=== PATIENT | male | born 1945 | race Caucasian/White ===

== ENCOUNTER 2018-01-22 12:40 | Day surgery (SDC) | payer MEDICARE ==
[~2018-01-22] VITALS: Ht 188 cm; Wt 95.9 kg
[~2018-01-22 12:40] MED LIST: ALBU90OI INH; ASPI81EC PO; FEXO180 PO; FLUSAL2505 IH; FURO40 PO; Isosorbide Mono30 MG PO; LEVSOD100 PO; LISI5 PO; METO25 PO; POTA10T PO; SERT50 PO; SIMV10 PO; SPIR25 PO; XARELTO20 MG PO; ZOLP10 PO
== END 2018-01-22 15:33 | disposition home or self-care (01) ==
LOC: ORSCSDS 12:40
PROVIDERS: Ophthalmology
PROC: 08RJ3JZ Replacement of Right Lens with Synthetic Substitute, Percutaneous Approach (ICD-10-PCS; principal; 2018-01-22 14:00)
DX: H25.11 Age-related nuclear cataract, right eye (principal); I25.10 Atherosclerotic heart disease of native coronary artery without angina pectoris; J44.9 Chronic obstructive pulmonary disease, unspecified; I25.2 Old myocardial infarction; I10 Essential (primary) hypertension; E03.9 Hypothyroidism, unspecified; Z95.0 Presence of cardiac pacemaker; Z79.899 Other long term (current) drug therapy
CPT/HCPCS: J2250; J3010; J7120; V2632

== ENCOUNTER 2019-10-07 13:17 | Inpatient (IN) | payer MEDICARE ==
[~2019-10-07] VITALS: Ht 188 cm; Wt 103.9 kg
[2019-10-07] MEDS ORDERED: ALBU90OI INH (15:26)
[2019-10-07] MEDS ORDERED: ANORO ELLIPTA1 EACH INH (15:28)
[2019-10-07] MEDS ORDERED: ZOCOR20 MG PO (15:43)
[2019-10-07] MEDS ORDERED: EUTHYROX125 MCG PO (15:43)
[2019-10-07] MEDS ORDERED: Prinivil10 MG PO (15:44)
[2019-10-07] MEDS ORDERED: METO50 PO (15:44)
--- NOTE | 2019-10-07 18:10 | NUR ---
pt transferred to room via stretcher, a/o x 4, pleasant/cooperative, VSS. Dr Hudson and Luis Villegas consulting with pt, echocardiogram in room underway. pt provided with water and snack. bed in lowest position, bed rails up x 2, call light within reach and pt oriented to room.
--- NOTE | 2019-10-07 18:51 | NUR ---
echocardiogram complete
[2019-10-07 19:27] LABS: BASOPHILS ABSOLUTE AUTO 0.02 K/mm3 (0.00-0.23); BASOPHILS PERCENT AUTO 0 % (0-2); EOSINOPHILS ABSOLUTE AUTO 0.01 K/mm3 (0.00-0.68); EOSINOPHILS PERCENT AUTO 0 % (0-6); Hematocrit 41.7 % (37.0-53.0); Hemoglobin 13.5 g/dL (13.5-17.5); IMMATURE GRAN ABSOLUTE AUTO 0.05 K/mm3 (0.00-0.10); IMMATURE GRAN PERCENT AUTO 0 % (0-1); LYMPHOCYTES ABSOLUTE AUTO 0.79 K/mm3 (0.84-5.20); LYMPHOCYTES PERCENT AUTO 7 % (21-46); MONOCYTES ABSOLUTE AUTO 0.41 K/mm3 (0.16-1.47); MONOCYTES PERCENT AUTO 4 % (4-13); Mean Corpuscular HGB Conc 32.4 g/dL (31.5-36.5); Mean Corpuscular Volume 96 fL (80-100); Mean Platelet Volume 9.5 fL (9.1-12.4); NEUTROPHILS ABSOLUTE AUTO 10.38 K/mm3 (1.96-9.15); NEUTROPHILS PERCENT AUTO 89 % (41-73); Platelet Count 221 K/mm3 (150-400); RDW Coefficient Variation 12.3 % (11.7-14.2); RDW Standard Deviation 43.8 fL (35.1-46.3); Red Blood Cell Count 4.35 M/mm3 (4.30-5.90); White Blood Cell Count 11.66 K/mm3 (4.00-11.30)
[2019-10-07 19:46] LABS: Alanine Aminotransfer (ALT/SGP 20 U/L (12-78); Albumin, Blood 4.2 g/dL (3.4-5.0); Albumin/Globulin Ratio 1.2 (0.8-1.8); Alk Phos 66 U/L (50-136); Anion Gap 6 mmol/L (6-16); Aspartate Aminotrans (AST/SGOT 15 U/L (12-37); Bilirubin, Total 0.8 mg/dL (0.1-1.0); Blood Urea Nitrogen 18 mg/dL (8-24); Bun/Creatinine Ratio 20.5 (12.0-20.0); CO2, Blood 27 mmol/L (21-32); Calcium, Blood 9.1 mg/dL (8.5-10.1); Chloride, Blood 103 mmol/L (98-108); Creatinine, Blood 0.88 mg/dL (0.60-1.20); Globulin, Blood 3.5 g/dL (2.2-4.0); Glomerular Filtration Rate >60 (60-); Glucose, Blood 182 mg/dL (70-99); Potassium, Blood 4.2 mmol/L (3.5-5.5); Sodium, Blood 136 mmol/L (136-145); Total Protein, Blood 7.7 g/dL (6.4-8.2)
--- NOTE | 2019-10-08 00:50 | NUR ---
RECIEVED ORDERS TO START NS AT 100ML/HR RELATED TO NPO STATUS FOR SURGERY TOMORROW.
[2019-10-08 05:13] LABS: BASOPHILS ABSOLUTE AUTO 0.02 K/mm3 (0.00-0.23); BASOPHILS PERCENT AUTO 0 % (0-2); EOSINOPHILS ABSOLUTE AUTO 0.07 K/mm3 (0.00-0.68); EOSINOPHILS PERCENT AUTO 1 % (0-6); Hemoglobin 12.8 g/dL (13.5-17.5); IMMATURE GRAN ABSOLUTE AUTO 0.04 K/mm3 (0.00-0.10); IMMATURE GRAN PERCENT AUTO 0 % (0-1); LYMPHOCYTES ABSOLUTE AUTO 1.38 K/mm3 (0.84-5.20); LYMPHOCYTES PERCENT AUTO 14 % (21-46); MONOCYTES ABSOLUTE AUTO 0.77 K/mm3 (0.16-1.47); MONOCYTES PERCENT AUTO 8 % (4-13); Mean Corpuscular HGB 31.1 pg (26.0-34.0); Mean Corpuscular Volume 97 fL (80-100); Mean Platelet Volume 9.6 fL (9.1-12.4); NEUTROPHILS ABSOLUTE AUTO 7.94 K/mm3 (1.96-9.15); NEUTROPHILS PERCENT AUTO 78 % (41-73); Platelet Count 192 K/mm3 (150-400); RDW Coefficient Variation 12.4 % (11.7-14.2); RDW Standard Deviation 44.5 fL (35.1-46.3); Red Blood Cell Count 4.12 M/mm3 (4.30-5.90); White Blood Cell Count 10.22 K/mm3 (4.00-11.30)
[2019-10-08 05:35] LABS: Alanine Aminotransfer (ALT/SGP 17 U/L (12-78); Albumin, Blood 3.8 g/dL (3.4-5.0); Albumin/Globulin Ratio 1.1 (0.8-1.8); Alk Phos 60 U/L (50-136); Anion Gap 4 mmol/L (6-16); Aspartate Aminotrans (AST/SGOT 13 U/L (12-37); Bilirubin, Total 0.8 mg/dL (0.1-1.0); Blood Urea Nitrogen 21 mg/dL (8-24); Bun/Creatinine Ratio 25.5 (12.0-20.0); CO2, Blood 29 mmol/L (21-32); Calcium, Blood 8.6 mg/dL (8.5-10.1); Chloride, Blood 103 mmol/L (98-108); Creatinine, Blood 0.83 mg/dL (0.60-1.20); Globulin, Blood 3.5 g/dL (2.2-4.0); Glomerular Filtration Rate >60 (60-); Glucose, Blood 140 mg/dL (70-99); Sodium, Blood 136 mmol/L (136-145); Total Protein, Blood 7.3 g/dL (6.4-8.2)
--- NOTE | 2019-10-08 05:57 | NUR ---
SHIFT SUMMARY AA0X4, VSS. PT HAS BEEN REPOSITIONING FREQUENTLY IN BED. NPO SINCE 0000 IN PREPARATION FOR SURGERY. WILL PASS ON TO DAY NURSE TO HOLD MORNING XARELTO FOR SURGERY. SENSATION PRESENT IN L HIP, CAP REFILL <3 WIGGLES FINGERS AND TOES. IV FLUIDS INFUSING DURING SHIFT. PT HAS YET TO VOID, BLADDER SCAN OF 243 BEFORE IV FLUIDS STARTED. PT DECLINED BLADDER SCAN AND REQUESTED THIS NURSE ATTEMPT AGAIN AT SHIFT CHANGE. EDUCATED PT ON NEED FOR POSSIBLE STRAIGHT CATH IF UNABLE TO VOID.
--- NOTE | 2019-10-08 10:00 | NUR ---
DR EDWARDS HERE TO SEE PT.
--- NOTE | 2019-10-08 11:59 | NUR ---
PT BEEN GIVEN WATER RECENTLY IT WAS REPORTED THAT PT WAS NOT HAVING PROCEDURE TODAY. PT EDUCATED ON NEW ORDERS OF BEING ABLE TO EAT/DRINK NOW AND NPO AFTER MIDNIGHT.
--- NOTE | 2019-10-08 16:09 | NUR ---
SHIFT SUMMARY PT EATING AND DRINKING AFTER IT WAS REPORTED THAT HE WAS NOT HAVING A PROCEDURE TODAY. PT VOIDED SMALL AMT, DOES NOT FEEL IF HE NEEDS TO VOID ANYMORE. PT BLADDER SCANNED, 327 IN BLADDER. PT REPORTS DOES NOT WANT A CATHETER THAT HE WILL ATTEMPT TO GO AGAIN AFTER A WHILE. PT BEEN REPOSITIONED. PT BEEN ASSISTED WITH ADL'S PRN. PT BEEN MED FOR PAIN PRN.
--- NOTE | 2019-10-09 04:34 | NUR ---
SHIFT SUMMARY PT IS A/O X4. HAS BEEN BEDREST D/T L HIP FX. PAIN MANAGED WITH PO PAIN MED AND IV DILAUDED FOR BREAKTHROUGH; SEE EMAR. PT REPOSITIONED SEVERAL TIMES THROUGHOUT THE NIGHT. PT HAS BEEN NPO SINCE MIDNIGHT PER ORDER. PT IS VOIDING, USES URINAL. PER TELE PT HAS BEEN IN AFIB DURING THE NIGHT; PT HAS HX A FIB. NO ACUTE CHANGES. VSS.
--- NOTE | 2019-10-09 15:27 | NUR ---
SHIFT SUMMARY PT A&OX4, VSS, TELE PACED 65 / AFIB. S/P MELONIE, AQUACEL CDI, WBAT, SCDS/TEDS ON. AMBULATES WITH FWW & GB SBA TO CHAIR. PAIN MANAGED WITH 5 MG OXYCODONE AND TYLENOL. INGRID PO, DENIES N&V. VOIDING WELL. I.S. & TCDB EDU & ENC Q1H, PT DEMONSTRATED. WILL REPORT TO ONCOMING NOC RN.
[2019-10-10 04:12] LABS: BASOPHILS ABSOLUTE AUTO 0.01 K/mm3 (0.00-0.23); BASOPHILS PERCENT AUTO 0 % (0-2); EOSINOPHILS ABSOLUTE AUTO 0.16 K/mm3 (0.00-0.68); EOSINOPHILS PERCENT AUTO 2 % (0-6); Hematocrit 28.7 % (37.0-53.0); Hemoglobin 9.4 g/dL (13.5-17.5); IMMATURE GRAN ABSOLUTE AUTO 0.05 K/mm3 (0.00-0.10); IMMATURE GRAN PERCENT AUTO 1 % (0-1); LYMPHOCYTES ABSOLUTE AUTO 1.14 K/mm3 (0.84-5.20); LYMPHOCYTES PERCENT AUTO 10 % (21-46); MONOCYTES ABSOLUTE AUTO 1.06 K/mm3 (0.16-1.47); MONOCYTES PERCENT AUTO 10 % (4-13); Mean Corpuscular HGB 30.6 pg (26.0-34.0); Mean Corpuscular HGB Conc 32.8 g/dL (31.5-36.5); Mean Corpuscular Volume 94 fL (80-100); Mean Platelet Volume 9.9 fL (9.1-12.4); NEUTROPHILS ABSOLUTE AUTO 8.61 K/mm3 (1.96-9.15); NEUTROPHILS PERCENT AUTO 78 % (41-73); Platelet Count 152 K/mm3 (150-400); RDW Coefficient Variation 12.2 % (11.7-14.2); RDW Standard Deviation 41.8 fL (35.1-46.3); Red Blood Cell Count 3.07 M/mm3 (4.30-5.90); White Blood Cell Count 11.03 K/mm3 (4.00-11.30)
[2019-10-10 04:28] LABS: Anion Gap 4 mmol/L (6-16); Blood Urea Nitrogen 20 mg/dL (8-24); Bun/Creatinine Ratio 23.9 (12.0-20.0); CO2, Blood 27 mmol/L (21-32); Calcium, Blood 7.8 mg/dL (8.5-10.1); Chloride, Blood 104 mmol/L (98-108); Creatinine, Blood 0.84 mg/dL (0.60-1.20); Glomerular Filtration Rate >60 (60-); Glucose, Blood 112 mg/dL (70-99); Potassium, Blood 4.3 mmol/L (3.5-5.5); Sodium, Blood 135 mmol/L (136-145)
--- NOTE | 2019-10-10 04:28 | NUR ---
SHIFT SUMMARY POD LEFT EDWIN, AQUACEL CDI. A/OX4 WITH VSS. OOB WITH FWW/GB/SBA. REPORTS VOIDING WITHOUT DIFFICULTY AND PASSING FLATUS. INGRID DIET WITH GOOD PO INTAKE. MEDICATED TWICE FOR PAIN WITH 1 TAB ROXICODONE. POLAR PACK, SCDS, TEDS IN PLACE. ABLE TO REPOSITION SELF IN BED. IVF AND ABX INFUSED PER ORDERS. APPEARS TO HAVE RESTED WITH T/O SHIFT. IS CURRENTLY RESTING IN BED WITH CALL LIGHT IN REACH. WILL CONT TO MONITOR AND GIVE REPORT TO ONCOMING RN. PLAN FOR POSSIBLE DISCHARGE HOME?
[2019-10-10] MEDS ORDERED: ACET325 PO (09:49)
[2019-10-10] MEDS ORDERED: ROXICODONE5 MG PO (10:00)
[2019-10-10] MEDS ORDERED: Vitamin D2000 UNIT PO (10:01)
[2019-10-10] MEDS ORDERED: Percocet 5-3251 EACH PO (12:21)
--- NOTE | 2019-10-10 12:41 | NUR ---
DISCHARGE SUMMARY PT A&O4, VSS, LEFT FLOOR VIA WC WITH SHAR KIM, WITH ALL PERSONAL POSSESSIONS INCLUDING DC PACKET, NARC SCRIPT AND 2 AQUACEL DRESSINGS. DC INFO PROVIDED. PT REP UNDERSTANDING THOSE INSTRUCTIONS INCLUDING DRESSING CHANGES, OK TO SHOWER ONLY, 2 WK FU WITH SURGEON, AMB WITH FWW AT ALL TIMES INCLUDING SHORT FREQUENT WITH REST PERIODS OF ELEVATION AND POLAR PRANEETH. IV DC'D.
== END 2019-10-10 12:43 | disposition home health service (06) | DRG 470 ==
LOC: ER 13:17 → SURS 16:57
PROVIDERS: Orthopaedic Surgery; ADMIT Family Medicine
PROC: 0SRB04A Replacement of Left Hip Joint with Ceramic on Polyethylene Synthetic Substitute, Uncemented, Open Approach (ICD-10-PCS; principal; 2019-10-09 07:30)
DX: S72.002A Fracture of unspecified part of neck of left femur, initial encounter for closed fracture (principal); W19.XXXA Unspecified fall, initial encounter; Y93.E9 Activity, other interior property and clothing maintenance; J44.9 Chronic obstructive pulmonary disease, unspecified; I10 Essential (primary) hypertension; I71.2 Thoracic aortic aneurysm, without rupture; E78.5 Hyperlipidemia, unspecified; E03.9 Hypothyroidism, unspecified; I48.0 Paroxysmal atrial fibrillation; I35.0 Nonrheumatic aortic (valve) stenosis; M19.90 Unspecified osteoarthritis, unspecified site; I27.20 Pulmonary hypertension, unspecified; Z95.2 Presence of prosthetic heart valve; Z87.891 Personal history of nicotine dependence; Z95.0 Presence of cardiac pacemaker
CPT/HCPCS: 36415; 71045; 73502; 80048; 80053; 85025; 93005; 93010; 93306; 94640; 94760; 96374-59; 96375-59; 97110; 97116; 97162; 97165; 97535; 99285-25; C1776; J0171; J0690; J0735; J1100; J1170; J1885; J2250; J2405; J2704; J2795; J3010; J7030; U0002

== ENCOUNTER 2021-08-08 08:10 | Day surgery (SDC) | payer MEDICARE ==
[~2021-08-08] VITALS: Ht 188 cm; Wt 102.9 kg
[~2021-08-08 08:10] MED LIST changes: +ACET325 PO; +ANORO ELLIPTA1 EACH INH; +EUTHYROX125 MCG PO; +LEVSOD112 PO; +Lopressor 25 mg25 MG PO; +METO50 PO; +Percocet 5-3251 EACH PO; +Prinivil10 MG PO; +ROXICODONE5 MG PO; +Vitamin D2000 UNIT PO; +ZOCOR20 MG PO
--- NOTE | 2021-08-08 08:51 | NUR ---
08/08/21 0851 TITO HERNANDEZ TETRACAINE DROP INSTILLED AT 0846. PLEDGETT INSERTED AT 0848
[2021-08-08] MEDS ORDERED: FLUTICASONE-SA1 EAC2 INH (08:52)
== END 2021-08-08 10:15 | disposition home or self-care (01) ==
LOC: ORSCSDS 08:10
PROVIDERS: Ophthalmology
PROC: 08RK3JZ Replacement of Left Lens with Synthetic Substitute, Percutaneous Approach (ICD-10-PCS; principal; 2021-08-08 09:30)
DX: H25.12 Age-related nuclear cataract, left eye (principal); E03.9 Hypothyroidism, unspecified; E78.00 Pure hypercholesterolemia, unspecified; I10 Essential (primary) hypertension; J44.9 Chronic obstructive pulmonary disease, unspecified; I48.91 Unspecified atrial fibrillation; Z87.891 Personal history of nicotine dependence; Z95.0 Presence of cardiac pacemaker; Z79.01 Long term (current) use of anticoagulants; Z79.899 Other long term (current) drug therapy
CPT/HCPCS: J2001; J2250; J3010; J3301; J7040; V2632

== ENCOUNTER 2023-12-01 13:01 | Emergency (ER) | payer MEDICARE ==
[~2023-12-01] VITALS: Ht 185.4 cm; Wt 87.5 kg
[~2023-12-01 13:01] MED LIST changes: +FLUTICASONE-SA1 EAC2 INH
[2023-12-01 15:04] LABS: BASOPHILS ABSOLUTE AUTO 0.02 K/mm3 (0.00-0.23); BASOPHILS PERCENT AUTO 0 % (0-2); EOSINOPHILS ABSOLUTE AUTO 0.02 K/mm3 (0.00-0.68); EOSINOPHILS PERCENT AUTO 0 % (0-6); Hematocrit 35.1 % (37.0-53.0); Hemoglobin 10.9 g/dL (13.5-17.5); IMMATURE GRAN ABSOLUTE AUTO 0.06 K/mm3 (0.00-0.10); IMMATURE GRAN PERCENT AUTO 1 % (0-1); LYMPHOCYTES ABSOLUTE AUTO 1.39 K/mm3 (0.84-5.20); LYMPHOCYTES PERCENT AUTO 14 % (21-46); MONOCYTES PERCENT AUTO 7 % (4-13); Mean Corpuscular HGB 30.6 pg (26.0-34.0); Mean Corpuscular HGB Conc 31.1 g/dL (31.5-36.5); Mean Corpuscular Volume 99 fL (80-100); NEUTROPHILS PERCENT AUTO 78 % (41-73); Platelet Count 174 K/mm3 (150-400); RDW Coefficient Variation 13.8 % (11.7-14.2); RDW Standard Deviation 49.7 fL (35.1-46.3); Red Blood Cell Count 3.56 M/mm3 (4.30-5.90); White Blood Cell Count 9.69 K/mm3 (4.00-11.30)
[2023-12-01 15:18] LABS: Albumin, Blood 3.7 g/dL (3.4-5.0); Bilirubin, Total 1.7 mg/dL (0.1-1.0); Bun/Creatinine Ratio 23.4 (12.0-20.0); Calcium, Blood 8.7 mg/dL (8.5-10.1); Creatinine, Blood 0.68 mg/dL (0.60-1.20); Globulin, Blood 3.8 g/dL (2.2-4.0); Potassium, Blood 4.2 mmol/L (3.5-5.5); Thyroid Stimulating Hormone 8.03 uIU/mL (0.360-4.800); Total Protein, Blood 7.5 g/dL (6.4-8.2)
[2023-12-01 16:01] LABS: Base Excess Venous 1.5 mmol/L; Bicarbonate Venous 25.7 mmol/L (24.0-30.0); PCO2 Venous 37.6 mmHg (38-42); pH Blood Venous 7.44 (7.34-7.37)
[2023-12-01 16:25] LABS: Influenza A, PCR NEGATIVE (NEGATIVE); Influenza B, PCR NEGATIVE (NEGATIVE); Resp Syncytial Virus, PCR NEGATIVE (NEGATIVE)
[2023-12-01] MEDS ORDERED: DECADRON4 M1 PO (17:57)
[2023-12-01] MEDS ORDERED: Lasix20 MG PO (17:57)
[2023-12-01] MEDS ORDERED: Furosemide 20 MG Tab PO ONE (18:05)
[2023-12-01 18:35] LABS: SARS-Cov-2 (COVID-19) PCR, MMC POSITIVE (NEGATIVE)
[2023-12-01 19:40] VITALS: BP 179/78
== END 2023-12-01 19:54 | disposition home or self-care (01) ==
LOC: ER 13:01
PROVIDERS: Emergency Medicine
DX: U07.1 COVID-19 (principal); R09.02 Hypoxemia; I11.9 Hypertensive heart disease without heart failure; I50.9 Heart failure, unspecified; J44.9 Chronic obstructive pulmonary disease, unspecified; I48.0 Paroxysmal atrial fibrillation; E78.5 Hyperlipidemia, unspecified; E03.9 Hypothyroidism, unspecified; Z87.891 Personal history of nicotine dependence; Z79.51 Long term (current) use of inhaled steroids; Z79.899 Other long term (current) drug therapy
CPT/HCPCS: 0241U; 71045; 80053; 82803; 83880; 84443; 84484; 85025; A9270